=== PATIENT | male | born 1930 | race Caucasian/White ===

== ENCOUNTER 2020-05-08 08:59 | Emergency (ER) | payer OTHER ==
[~2020-05-08] VITALS: Ht 170.2 cm; Wt 87.5 kg
[2020-05-08] MEDS ORDERED: FENOFIBRATE160 MG PO (09:13)
[2020-05-08] MEDS ORDERED: PROSCAR 5MG TABL5 M1 PO (09:13)
[2020-05-08] MEDS ORDERED: METFORMIN HCL500 M3 PO (09:14)
[2020-05-08] MEDS ORDERED: FLOMAX0.4 MG PO (09:14)
[2020-05-08] MEDS ORDERED: LISINOPRIL20 MG PO (09:15)
[2020-05-08] MEDS ORDERED: NEURONTIN100 MG PO (09:15)
[2020-05-08] MEDS ORDERED: AMARYL4 MG PO (09:15)
[2020-05-08] MEDS ORDERED: CARDIZEM SR 60M60 MG PO (09:16)
[2020-05-08] MEDS ORDERED: FISH OIL 1,0001 EAC9 PO (09:16)
[2020-05-08] MEDS ORDERED: XARELTO20 MG PO (09:16)
[2020-05-08 10:00] LABS: ABSOLUTE LYMPHOCYTES 0.8 thou/uL (0.8-5.3); ABSOLUTE MONOCYTES 0.4 thou/uL (0.0-1.2); ABSOLUTE NEUTROPHILS 2.5 thou/uL (1.6-8.1); BASOPHILS 0.4 %; EOSINOPHILS 0.2 %; HEMATOCRIT 40.7 % (42.0-52.0); HEMOGLOBIN 13.8 gm/dL (14.0-18.0); LYMPHOCYTES 21.2 %; MCH 31.2 pg (26.0-34.0); MCHC 33.8 g/dL (28.0-37.0); MCV 92.3 fL (80.0-100.0); MONOCYTES 10.2 %; MPV 8.6 fl. (7.2-11.1); NUCLEATED RBCS 0 /100WBC; PLATELET COUNT* 152 thou/uL (150-400); RBC 4.41 mil/uL (4.50-6.00); WBC 3.7 thou/uL (4.0-11.0)
[2020-05-08 10:07] LABS: CALCIUM 8.5 mg/dL (8.5-10.1); CREATININE 1.1 mg/dL (0.6-1.3); POTASSIUM 3.6 mmol/L (3.5-5.1)
[2020-05-08 10:12] LABS: ALBUMIN 3.2 g/dL (3.4-5.0); TOTAL BILIRUBIN 0.7 mg/dL (<0.1-1.0); TOTAL PROTEIN 6.9 g/dL (6.4-8.2)
[2020-05-08] MEDS ORDERED: CIPROFLOXACIN500 M1 PO (10:42)
[2020-05-08 11:02] LABS: URINE BILIRUBIN NEGATIVE (Negative); URINE BLOOD TRACE (Negative); URINE CLARITY CLEAR; URINE COLOR YELLOW; URINE GLUCOSE-RANDOM TRACE (Negative); URINE KETONES NEGATIVE (Negative); URINE LEUKOCYTES-REFLEX TRACE (Negative); URINE NITRITE-REFLEX NEGATIVE (Negative); URINE PROTEIN 2+ (Negative); URINE SPECIFIC GRAVITY >= 1.030 (1.005-1.030)
[2020-05-08 11:11] LABS: BACTERIA-REFLEX 1-9 Few /HPF (None Seen); CRYSTALS None Seen /LPF (None Seen); HYALINE CASTS 4-10 Moderate /LPF (None Seen); MUCUS 4-6 Moderate strn/LPF (None Seen); SQUAMOUS 4-10 Moderate /LPF (0-3); URINE RBC 0-2 Rare /HPF (0-2); URINE WBC-REFLEX 0-5 Rare /HPF (0-5)
[2020-05-08 11:51] VITALS: BP 157/80
--- NOTE | 2020-05-08 15:16 | EKG ---
[place] [address] ELECTROCARDIOGRAM REPORT Name: JUVENAL LANG Room: [facility]#: [id number] Admission: 05/08/20 Attend Phys: Discharge: 05/08/20 Date of : [birth year] Date of Service: 05/08/20922 Report #: [id number] THIS REPORT FOR: //name// [facility] ED Test Date: 2020-05-08 Test Time: 09:23:50 Pat Name: JUVENAL HAQUECAROLYN Department: Room: Gender: Singer Songwriter: : [id number] Requested By: Garrett Stark Order Number: [id number] MD: Mauri Majano Measurements Intervals [place] Rate: 139 P: OK: QRS: -73 QRSD: 117 T: 89 QT: 329 QTc: 501 Interpretive Statements Atrial fibrillation Rare beat with increased aberrancy Left anterior fascicular block No previous ECG available for comparison Electronically Signed On 05-08-2020 15:16:26 [employer] by Mauri Majano [email or web address] <ELECTRONICALLY SIGNED> By: Mauri Majano MD, [facility] 05/08/20 1516 2 2 Mauri Majano MD, [facility] /EPI
== END 2020-05-08 11:51 | disposition home or self-care (01) ==
LOC: M.ERS 08:59
PROVIDERS: Family Medicine
DX: N39.0 Urinary tract infection, site not specified (principal); I48.91 Unspecified atrial fibrillation; E11.9 Type 2 diabetes mellitus without complications; Z79.899 Other long term (current) drug therapy